=== PATIENT | female | born 1960 | race American Indian/Alaskan Native ===

== ENCOUNTER 2017-10-29 08:03 | Day surgery (SDC) | payer MEDICARE, OTHER ==
--- NOTE | 2017-10-29 10:43 | Short Stay Summary ---
Short Stay Documentation Date of service: 10/29/17 - History Principal diagnosis: thyroid nodules H&P: obtained from office - Allergies and Medications Current Medications: Allergies No Known Allergies Allergy (Verified 10/29/17 08:29) Home Medications Medication Instructions Recorded Confirmed Last Taken Type AtorvaSTATin [Lipitor] 40 mg PO QHS 10/29/17 10/29/17 10/28/17 History 40mg Ramipril 2.5 mg PO DAILY 10/29/17 10/29/17 10/28/17 History 2.5mg metFORMIN [Glucophage] 500 mg PO BID 10/29/17 10/29/17 10/28/17 History 500mg - Physical exam General appearance: no acute distress HEENT: Other (mildly promient thyroid) - Brief post op/procedure progress note Date of procedure: 10/29/17 Pre-op diagnosis: thyroid nodules Post-op diagnosis: same Procedure: US thyroid biopsy/FNA Anesthesia: local Findings: enlarged thyroid with multiple nodules. Dominant nodule in left lobe biopsied. Surgeon: TRACEY BAUMAN Estimated blood loss: none Pathology: list (FNA x 2) Specimen disposition: to lab Condition: stable - Disposition Condition at discharge: Good Disposition: [id number] TO HOME OR SELFCARE Short Stay Discharge Plan Follow up with: ALBERTA BAY MD [Primary Care Provider] - 7 Days
[2017-10-29 10:51] VITALS: BP 124/70
--- NOTE | 2017-10-29 11:58 | Ultrasound Report ---
ULTRASOUND BIOPSY THYROID HISTORY: Thyroid nodule. DESCRIPTION OF PROCEDURE: Informed consent was obtained. Sterile technique was utilized. 1% lidocaine for skin anesthesia. Using ultrasound guidance, 2 fine needle aspirations were obtained from the dominant nodule in the medial left thyroid lobe which measures 3.7 x 1.2 cm. The samples were deemed adequate by the pathologist on site. This was scheduled for a bilateral thyroid biopsy. The dominant nodule in the right thyroid lobe measures 2.3 x 1.7 cm. This nodule could not be biopsied because it was adjacent to the right internal jugular vein and right common carotid artery. This was discussed with the patient and she was in agreement to forego the biopsy on the right side. IMPRESSION: Successful fine needle aspiration of dominant nodule in the left thyroid lobe. See above.
== END 2017-10-29 11:00 | disposition home or self-care (01) ==
LOC: CATHLABREC 08:03
PROVIDERS: ATTEND Family Medicine
DX: E04.1 Nontoxic single thyroid nodule (principal)
CPT/HCPCS: 10022; 60100; 76942; 88112; 88172; 88173; 88305

== ENCOUNTER 2018-05-06 08:19 | Outpatient (CLI) | payer MEDICARE, OTHER ==
--- NOTE | 2018-05-07 09:17 | Nuclear Medicine Report ---
NUCLEAR MEDICINE THYROID UPTAKE AT MULTIPLE HISTORY: Hyperthyroidism FINDINGS: Scintigraphic images of the thyroid gland are within normal limits. No hot or cold defect is identified. 4 hour uptake measures 13.8%. Normal range 4-18%. 24 hour uptake measures 37.4%. Normal range 18-36%. IMPRESSION: Mildly elevated 24 hour uptake values as outlined above.
== END 2018-05-06 08:20 | disposition home or self-care (01) ==
LOC: NM 08:19
PROVIDERS: ATTEND Internal Medicine Endocrinology, Diabetes & Metabolism
DX: E05.90 Thyrotoxicosis, unspecified without thyrotoxic crisis or storm (principal); E78.00 Pure hypercholesterolemia, unspecified; M19.90 Unspecified osteoarthritis, unspecified site; Z90.49 Acquired absence of other specified parts of digestive tract; Z90.710 Acquired absence of both cervix and uterus
CPT/HCPCS: 78012; A9516